=== PATIENT | male | born 1975 | race Caucasian/White ===

== ENCOUNTER → 2016-11-14 | Outpatient (CLI) | payer BC ==
[~2016-11-14] MED LIST: OPTIRAY 320 IV PRN
--- NOTE | 2016-11-14 14:45 | DIAGNOSTIC IMAGING REPORT ---
ABDOMEN AND PELVIS CT EXAMINATION PRE AND POST INTRAVENOUS CONTRAST CT DOSE: 1261.58 mGycm HISTORY: Pain LLQ Pain; r/o DIVERTICULITIS TECHNIQUE: Multiaxial CT images of the abdomen and pelvis were performed pre and post intravenous contrast enhancement. COMPARISON STUDY: None. FINDINGS: Lung bases are clear. Nonobstructing calcifications lower pole of the kidneys. No evidence renal hydronephrosis. The unenhanced component of the study shows no evidence for an obstructing urinary tract calculus. The enhanced component of the study demonstrates uniform enhancement of liver spleen and pancreas. Kidneys enhance appropriately. 1.5 cm cyst lower aspect left kidney. Bowel pattern overall is nonobstructive. Subtle wall thickening distal descending and proximal sigmoid colonic regions. Mild wall thickening of the mid sigmoid. No evidence for abscess collection or obstruction. Mild rectal wall thickening. Bladder is midline. No contained calcifications. Several small reactive inguinal nodes bilaterally. IMPRESSION: 1. Small nonobstructing lower pole renal calcifications bilaterally. 2. No evidence for an obstructing urinary tract calculus. 3. Mild wall thickening of the distal descending and sigmoid colonic regions consistent with a nonspecific colitis.. 4. No evidence for abscess collection or obstruction. 5. Nonspecific rectal wall thickening Electronically signed by: Koffi Walker M.D. 11/14/2016 2:43 PM Dictated Date/Time: 11/14/2016 2:38 PM
== END | disposition home or self-care (01) ==
LOC: C.CTS 11:35
PROVIDERS: ATTEND Family Medicine
DX: R10.32 Left lower quadrant pain (principal)